=== PATIENT | female | born 1960 | race Caucasian/White ===

== ENCOUNTER → 2016-10-23 | Outpatient (CLI) | payer OTHER ==
[~2016-10-23] MED LIST: CALCIUM + D 6001 TA1 PO; CARVEDILOL25 MG PO; NOVOLOG MI100 UNIT/1 SQ; PERCOCET5/325 PO; PROPYLTHIOURACIL1 GM PO; SIMVASTATIN20 MG PO; VITAMIN D35000 UNIT PO; ZZZQUIL25 MG PO
--- NOTE | ~2016-10-23 | MY11 ---
[facility] A Service of [facility] RADIOLOGY TEXT RESULTS PATIENT: JOHN LAU LOCATION: [facility] : 56 UNIT #: [id number] AGE: [address]: WILLEM MELLO MD SEX: F ORDER DR: [id number] [facility] [place] [address] [place], [place] [address] [id number] MR#: [id number] Acc #: [id number] NAME: JOHN LAU : 1960 SEX: F STUDY DATE/TIME: 10/23/2016 16:16 UNIT: [facility] ROOM: STUDY DESCRIPTION: MY Mammogram Screening Dig Brijesh Attending Physician: Willem Mello M.D. Referring Physician: Willem Mello M.D. Ordering Physician: Willem Mello M.D. Primary Care Physician: Willem Mello M.D. MEDICAL IMAGING REPORT This report is preliminary unless electronic signature is present EXAM Digital screening mammogram, 10/23/2016 HISTORY 56-year-old woman, no risk elevation. Annual screening. COMPARISON Outside mammogram [facility] 03/04/2014. FINDINGS Digital imaging of each breast was completed utilizing screening protocol. Review includes FDA-approved CAD device. The breast parenchyma is extremely dense reducing sensitivity of mammography. I see no suspicious mass characteristics. There are no interval occurring microcalcifications and no suspicious architectural deformity. IMPRESSION Benign mammogram with stable dense breast parenchyma bilaterally. Annual screening recommended. Patients over the age of 40 are entered into a reminder system with target due date for the next mammogram. A result letter will also be sent to the patient. BIRADS: 2 Benign finding Dictated by... Jae Campos M.D. THIS IS AN ELECTRONICALLY VERIFIED REPORT Jae Campos M.D. at 10/25/2016 8:03 AM [facility] A Service of [facility] RADIOLOGY TEXT RESULTS PATIENT: JOHN LAU LOCATION: [facility] : 56 UNIT #: [id number] AGE: [address]: WILLEM MELLO MD SEX: F ORDER DR: MERCEDES/[email or web address] TD: 10/24/2016 21:10 JOB #: [id number] MEDICAL IMAGING REPORT COPY
== END | disposition home or self-care (01) ==
LOC: CWCC 15:59
DX: Z12.31 Encounter for screening mammogram for malignant neoplasm of breast (principal); R92.8 Other abnormal and inconclusive findings on diagnostic imaging of breast
CPT/HCPCS: G0202